=== PATIENT | female | born 1960 ===

== ENCOUNTER 2021-12-12 11:34 | Outpatient (CLI) | payer BC ==
[~2021-12-12 11:34] MED LIST: Gadobenate Dimeglumine 529 MG/1 ML (20ML VIAL) ONE
== END 2021-12-12 11:35 | disposition home or self-care (01) ==
LOC: SCSMRI 11:34
PROVIDERS: ATTEND Nurse Practitioner Family
DX: F07.81 Postconcussional syndrome (principal); H53.9 Unspecified visual disturbance
CPT/HCPCS: 70553; 82565; A9577